=== PATIENT | male | born 1950 | race Caucasian/White ===

== ENCOUNTER 2017-12-24 23:29 | Emergency (ER) | payer MEDICARE, BC ==
[2017-12-24 23:45] VITALS: BP 153/92
--- NOTE | 2017-12-24 23:49 | EDM.PDOC ---
ED HPI GENERAL MEDICAL PROBLEM - General Chief Complaint: Gastrointestinal Problem Stated Complaint: RECTAL BLEEDING Time Seen by Provider: 12/24/17 23:35 Source of Information: Reports: Patient, RN History Limitations: Reports: No Limitations - History of Present Illness INITIAL COMMENTS - FREE TEXT/NARRATIVE: 67 yr male presents with rectal bleeding tonight. States he noticed some blood in stool earlier this week, then had another BM later in week and looked ok with no blood. Now tonight after fishing he noted large amount of blood to stool. States no history of hemorrhoid in the past. States last colonoscopy was about 8 year ago and needs to schedule another. States he take BP medication, takes Aleve for arthritis and had surgery to right hip about 3 weeks ago. States he had a good supper tonight and did have a couple alcohol drinks, but hasn't had any excessive alcohol before that. Pt states he didn't take his BP medicine yet today and take lisinopril/hctz. Recommend taking this tonight. - Related Data Allergies Allergy/AdvReac Type Severity Reaction Status Date / Time No Known Allergies Allergy Verified 12/24/17 23:41 Home Meds: Home Meds Acetaminophen [Tylenol Arthritis Pain] 2 tab PO DAILY PRN 12/24/17 [History] Fexofenadine HCl [Wal-Fex Allergy] 180 mg PO DAILY 12/24/17 [History] Lisinopril/Hydrochlorothiazide [Lisinopril-Hctz 20-25 mg Tab] 1 each PO DAILY [History] Multivitamin [One Daily Multivitamin] 1 each PO DAILY 12/24/17 [History] Naproxen Sodium [Aleve] 2 tab PO DAILY PRN 12/24/17 [History] ED ROS GENERAL - Review of Systems Review Of Systems: See Below Constitutional: Reports: No Symptoms HEENT: Reports: No Symptoms Respiratory: Reports: No Symptoms Cardiovascular: Reports: No Symptoms GI/Abdominal: Reports: Bloody Stool. Denies: Constipation, Diarrhea, Decreased Appetite : Reports: No Symptoms Musculoskeletal: Reports: Back Pain Skin: Reports: No Symptoms Neurological: Reports: No Symptoms Psychiatric: Reports: Other (worried with bleeding) Hematologic/Lymphatic: Reports: No Symptoms Immunologic: Reports: No Symptoms ED EXAM, GI/ABD - Physical Exam Exam: See Below Exam Limited By: No Limitations General Appearance: Alert, No Apparent Distress Ears: Hearing Grossly Normal Nose: Normal Inspection Throat/Mouth: Normal Inspection, Normal Lips, Normal Voice, No Airway Compromise Head: Atraumatic, Normocephalic Neck: Normal Inspection, Supple, Non-Tender Respiratory/Chest: No Respiratory Distress, Lungs Clear, Normal Breath Sounds Cardiovascular: Regular Rate, Rhythm GI/Abdominal Exam: Normal Bowel Sounds, Soft, Non-Tender, No Distention, Other ( aries, red blood to toilet with BM). No: Guarding, Rigid, Rebound, Mass (Male) Exam: Deferred Rectal (Males) Exam: Normal Rectal Tone, Bloody Stool. No: Hemorrhoids, Mass, Tenderness Back Exam: Normal Inspection Extremities: Normal Inspection, Normal Range of Motion, No Pedal Edema Neurological: Alert, Oriented, Normal Cognition Psychiatric: Normal Affect, Normal Mood Skin Exam: Warm, Dry, Normal Color Course - Vital Signs Last Recorded V/S: Last Vital Signs Temp 98.3 F 12/24/17 23:30 Pulse 115 H 12/24/17 23:30 Resp 20 12/24/17 23:30 BP 153/92 H 12/24/17 23:30 Pulse Ox 97 12/24/17 23:30 - Orders/Labs/Meds Labs: Laboratory Tests 12/24/17 12/24/17 12/24/17 Range/Units 23:50 23:56 23:56 WBC 11.3 H (4.0-11.0) K/uL RBC 3.82 L (4.50-6.50) M/uL Hgb 12.0 L (13.0-18.0) g/dL Hct 36.3 L (40.0-54.0) % MCV 95 (76-96) fL MCH 31.4 (27.0-32.0) pg MCHC 33.1 (31.0-35.0) g/dL RDW 13.9 (11.0-16.0) % Plt Count 257 (150-400) K/uL MPV 10.1 H (6.0-10.0) fL Neut % (Auto) 64.4 (45.0-70.0) % Lymph % (Auto) 22.3 (20.0-40.0) % [place] % (Auto) 12.4 H (3.0-10.0) % Eos % (Auto) 0.6 L (1.0-5.0) % Baso % (Auto) 0.3 (0.0-0.5) % Neut # (Auto) 7.25 (2.00-7.50) K/uL Lymph # (Auto) 2.51 (1.50-4.00) K/uL Independence # (Auto) 1.40 H (0.20-0.80) K/uL Eos # (Auto) 0.07 (0.04-0.40) K/uL Baso # (Auto) 0.03 (0.02-0.10) K/uL PT (9.0-11.5) sec INR (1.0-3.5) Sodium 141 (136-145) mmol/L Potassium 3.7 (3.5-5.1) mmol/L Chloride 104 (98-107) mmol/L Carbon Dioxide 27.3 (21.0-32.0) mmol/L Anion Gap 13.4 (5.0-15.0) mmol/L BUN 19 (8-26) mg/dL Creatinine 1.10 (0.70-1.30) mg/dL Est Cr Clr Drug Dosing TNP Estimated GFR (MDRD) > 60 (>60) MLS/MIN BUN/Creatinine Ratio 17.3 (6-25) Glucose 116 H (74-100) mg/dL Calcium 8.8 (8.5-10.1) mg/dL Total Bilirubin 0.3 (0.0-1.0) mg/dL AST 16 (15-37) U/L ALT 31 (12-78) U/L Alkaline Phosphatase 134 H (46-116) U/L Total Protein 7.2 (6.4-8.2) g/dL Albumin 3.6 (3.4-5.0) g/dL Globulin 3.6 (2.2-4.2) g/dL Albumin/Globulin Ratio 1.0 (0.8-2.0) Urine Color Yellow Urine Appearance Clear (CLEAR) Urine pH 5.0 (5.0-8.0) Ur Specific Ocate >= 1.030 (1.003-1.030) Urine Protein Negative (NEGATIVE) mg/dL Urine Glucose (UA) Negative (NEGATIVE) mg/dL Urine Ketones Trace H (NEGATIVE) mg/dL Urine Occult Blood Trace-intact H (NEGATIVE) Urine Nitrite Negative (NEGATIVE) Urine Bilirubin Negative (NEGATIVE) Urine Urobilinogen 0.2 (0.2-1.0) E.U./dL Ur Leukocyte Esterase Negative (NEGATIVE) Urine RBC 0-5 H /HPF Urine WBC 0-5 H /HPF Ur Squamous Epith Cells Rare /HPF Urine Bacteria Not seen /HPF 12/25/17 Range/Units 00:01 WBC (4.0-11.0) K/uL RBC (4.50-6.50) M/uL Hgb (13.0-18.0) g/dL Hct (40.0-54.0) % MCV (76-96) fL MCH (27.0-32.0) pg MCHC (31.0-35.0) g/dL RDW (11.0-16.0) % Plt Count (150-400) K/uL MPV (6.0-10.0) fL Neut % (Auto) (45.0-70.0) % Lymph % (Auto) (20.0-40.0) % Independence % (Auto) (3.0-10.0) % Eos % (Auto) (1.0-5.0) % Baso % (Auto) (0.0-0.5) % Neut # (Auto) (2.00-7.50) K/uL Lymph # (Auto) (1.50-4.00) K/uL Independence # (Auto) (0.20-0.80) K/uL Eos # (Auto) (0.04-0.40) K/uL Baso # (Auto) (0.02-0.10) K/uL PT 9.6 (9.0-11.5) sec INR 1.0 (1.0-3.5) Sodium (136-145) mmol/L Potassium (3.5-5.1) mmol/L Chloride (98-107) mmol/L Carbon Dioxide (21.0-32.0) mmol/L Anion Gap (5.0-15.0) mmol/L BUN (8-26) mg/dL Creatinine (0.70-1.30) mg/dL Est Cr Clr Drug Dosing Estimated GFR (MDRD) (>60) MLS/MIN BUN/Creatinine Ratio (6-25) Glucose (74-100) mg/dL Calcium (8.5-10.1) mg/dL Total Bilirubin (0.0-1.0) mg/dL AST (15-37) U/L ALT (12-78) U/L Alkaline Phosphatase (46-116) U/L Total Protein (6.4-8.2) g/dL Albumin (3.4-5.0) g/dL Globulin (2.2-4.2) g/dL Albumin/Globulin Ratio (0.8-2.0) Urine Color Urine Appearance (CLEAR) Urine pH (5.0-8.0) Ur Specific Ocate (1.003-1.030) Urine Protein (NEGATIVE) mg/dL Urine Glucose (UA) (NEGATIVE) mg/dL Urine Ketones (NEGATIVE) mg/dL Urine Occult Blood (NEGATIVE) Urine Nitrite (NEGATIVE) Urine Bilirubin (NEGATIVE) Urine Urobilinogen (0.2-1.0) E.U./dL Ur Leukocyte Esterase (NEGATIVE) Urine RBC /HPF Urine WBC /HPF Ur Squamous Epith Cells /HPF Urine Bacteria /HPF Meds: Medications Discontinued Medications Generic Name Dose Route Start Last Admin Trade Name Freq PRN Reason Stop Dose Admin Pantoprazole Sodium 40 mg 12/25/17 00:30 12/25/17 00:35 Protonix PO 12/25/17 00:31 40 mg ONETIME ONE Administration - Re-Assessments/Exams Free Text/Narrative Re-Assessment/Exam: 12/25/17 09:31 LE 12/24/17 Pt ambulated to bathroom and did have a BM with bright, red blood noted to toilet. U/A and labs completed. Gentle, Rectal exam completed and rectal area is tight and no palpable hemorrhoid noted and no blood noted to rectal sphincter. [place] colored blood noted to tip of exam glove from rectal exam. Reviewed lab results with pt and son. Hgb is 12.0 and PT/INR is normal. BUN is normal for reference value. Pt is drinking fluids well and no complaints of shortness of breath, no light headedness, no nausea and no abdominal pain with palpation. Color is pink, and skin is warm and dry. Discussed watching hgb over night with recheck in am. Recommend follow-up with PCP tomorrow am. Pt and son to stay in town [facility]. Order entered for Hgb in am. Recommend return to ER if symptoms persist or worsen over the evening. Discussed possible diverticular irritation or possible shearing in intestinal/colon from his firm stool and bearing down. Recommend adequate clear fluids tonight and soft foods in am, if no nausea and rectal bleed resolved. Recommend no seed, no raw onions, no acidic foods and no lettuce. Recommend stool softeners daily when the rectal bleed stops. F/U tomorrow with Hgb in am and with PCP tomorrow when home. 12/25/2016 09:20 Pt returned for Hgb check. Hgb 10.9 today. Recommend continue with fluids and soft diet. Pt states no more rectal bleeding in the night and did sleep well. Recommend F/U with PCP today for assessment. Pt states understanding. Pt in no acute distress and is ambulatory. Color is pink , skin is warm and dry. Departure - Departure Time of Disposition: 00:51 Disposition: Home, Self-Care 01 Condition: Good Clinical Impression: Rectal bleeding - Discharge Information Instructions: Lower Gastrointestinal Bleeding Referrals: PCP,None [Primary Care Provider] - Forms: ED Department Discharge Additional Instructions: Drink plenty of fluids and get plenty of rest. Diet as tolerated. Return to facility tomorrow morning for repeat hemoglobin level. Follow up with regular provider when you return home for further evaluation. Should symptoms worsen overnight such as shortness of breath or difficulty breathing, weakness, lethargy, return to be seen right away. Call with any questions.
[2017-12-25] MEDS: Pantoprazole 40 MG Tab.CR PO ONE (00:35)
== END 2017-12-25 00:50 | disposition home or self-care (01) ==
LOC: LB.ED 23:29
DX: K62.5 Hemorrhage of anus and rectum (principal); Z79.899 Other long term (current) drug therapy
CPT/HCPCS: 36415; 80053; 81001; 85025; 85610; 99283; A9270-GY